=== PATIENT | female | born 1975 | race Asian ===

== ENCOUNTER 2017-07-01 14:52 | Emergency (ER) | payer BC ==
[2017-07-01 15:24] VITALS: BP 130/70; PULSE 98; RESP 30; TEMP 98; O2SAT 100
--- NOTE | 2017-07-01 15:51 | RADRPT ---
EXAM DATE/TIME: 07/01/2017 15:42 [place] COMPARISON: No previous studies available for comparison. INDICATIONS : Patient presents with extreme shortness of breath , no prior history . MEDICAL HISTORY : None. SURGICAL HISTORY : None. ENCOUNTER: Initial ACUITY: 1 day PAIN SCORE: 3/10 LOCATION: Bilateral upper chest FINDINGS: PA and lateral views of the chest demonstrate the lungs to be symmetrically aerated without evidence of mass, infiltrate or effusion. The cardiomediastinal contours are unremarkable. Osseous structure s are intact. CONCLUSION: 1. No acute cardiopulmonary disease. Blue Chaudhari MD on July 01, 2017 at 15:48 Board Certified Radiologist. This report was verified electronically.
[2017-07-01 16:35] LABS: AUTOMATED NEUTROPHIL # 2.9 TH/MM3 (1.8-7.7); BASOPHIL # 0.1 TH/MM3 (0-0.2); BASOPHIL % 1.1 % (0.0-2.0); EOSINOPHIL # 0.6 TH/MM3 (0-0.4); EOSINOPHIL % 8.9 % (0.0-4.0); HEMATOCRIT 41.1 % (35.0-46.0); HEMOGLOBIN 14.4 GM/DL (11.6-15.3); LYMPHOCYTE # 2.5 TH/MM3 (1.0-4.8); MEAN CELL VOLUME 89.6 FL (80.0-100.0); MEAN CORPUSCULAR HEMOGLOBIN 31.3 PG (27.0-34.0); MEAN PLATELET VOLUME 8.4 FL (7.0-11.0); MONO % 6.4 % (0.0-8.0); MONOCYTE # 0.4 TH/MM3 (0-0.9); NEUT % 44.6 % (16.0-70.0); PLATELET COUNT 215 TH/MM3 (150-450); RED BLOOD COUNT 4.59 MIL/MM3 (4.00-5.30); RED CELL DISTRIBUTION WIDTH 12.1 % (11.6-17.2); WHITE BLOOD COUNT 6.5 TH/MM3 (4.0-11.0)
[2017-07-01 16:46] LABS: PROTHROMBIN TIME - PATIENT 10.4 SEC (9.8-11.6)
[2017-07-01 16:54] LABS: BICARBONATE 24.6 MEQ/L (21.0-32.0); BLOOD UREA NITROGEN 8 MG/DL (7-18); CALCIUM 9.1 MG/DL (8.5-10.1); CHLORIDE 109 MEQ/L (98-107); CREATININE 0.72 MG/DL (0.50-1.00); GLOMERULAR FILTRATION RATE 88 ML/MIN (>89); GLUCOSE,RANDOM 92 MG/DL (74-106); SODIUM (NA) 142 MEQ/L (136-145)
--- NOTE | 2017-07-01 16:54 | PD ---
HPI Chief Complaint: Respiratory Symptoms Time Seen by Provider: 16:33 Travel History International Travel<30 days: Yes Contact w/Intl Traveler<30days: Yes Name of Country Traveled to: [facility]; [facility] Traveled to known affect area: Yes History of Present Illness HPI 42yo F with PMH allergies presents to the ED with c/o sudden onset sob and chest tightness since 12pm today. Said it feels like someone is squeezing her. Pt also with nasal congestion for 2 weeks and has cough. She has recent travel history to [place] 3 weeks ago. Denies any fever, n/v, abdominal pain, focal weakness or numbness. PFSH Social History Tobacco Use: No Allergies-Medications (Allergen,Severity, Reaction): Uncoded Allergies: ENVIRONMENTAL (Allergy, Intermediate, 07/01/17) Reported Meds & Prescriptions Reported Meds & Active Scripts Active Claritin (Loratadine) 10 Mg Cap 10 Mg PO DAILY 30 Days Ventolin Hfa 18 GM Inh (Albuterol Sulfate) 90 Mcg/Act Aer 2 Puff INH Q6H PRN Deltasone (Prednisone) 20 Mg Tab 20 Mg PO BID 5 Days Review of Systems Except as stated in HPI: all other systems reviewed are Neg Physical Exam Narrative GENERAL: 42yo F in mild distress. SKIN: Focused skin assessment warm/dry. HEAD: Atraumatic. Normocephalic. EYES: Pupils equal and round. No scleral icterus. No injection or drainage. ENT: +Increase edema in nasal turbinates bilaterally. NECK: Trachea midline. No JVD. CARDIOVASCULAR: Regular rate and rhythm. No murmur appreciated. RESPIRATORY: No accessory muscle use. Clear to auscultation. Breath sounds equal bilaterally. GASTROINTESTINAL: Abdomen soft, non-tender, nondistended. MUSCULOSKELETAL: No obvious deformities. No clubbing. No cyanosis. No edema. No calf tenderness. NEUROLOGICAL: Awake and alert. No obvious cranial nerve deficits. Motor grossly within normal limits. Normal speech. PSYCHIATRIC: Appropriate mood and affect; insight and judgment normal. Data Data Last Documented VS Vital Signs Date Time Temp Pulse Resp B/P (MAP) Pulse Ox O2 Delivery O2 Flow Rate FiO2 07/01/17 16:30 96 Room Air 07/01/17 15:24 98.0 98 30 130/70 (90) Orders Orders Complete Blood Count With Diff (07/01/17 15:27) Basic Metabolic Panel (Bmp) (07/01/17 15:27) Coag Profile (07/01/17 15:27) Chest, Pa & Lat (07/01/17 ) D-Dimer (07/01/17 16:43) Electrocardiogram (07/01/17 ) Dexamethasone Inj (Decadron Inj) (07/01/17 17:00) Guaifen-Cod 200-20 Mg/10ml Liq (Robituss (07/01/17 17:00) Troponin I (07/01/17 16:01) Ed Discharge Order (07/01/17 18:11) Labs Laboratory Tests Test 07/01/17 16:01 07/01/17 16:43 White Blood Count 6.5 TH/MM3 Red Blood Count 4.59 MIL/MM3 Hemoglobin 14.4 GM/DL Hematocrit 41.1 % Mean Corpuscular Volume 89.6 FL Mean Corpuscular Hemoglobin 31.3 PG Mean Corpuscular Hemoglobin Concent 35.0 % Red Cell Distribution Width 12.1 % Platelet Count 215 TH/MM3 Mean Platelet Volume 8.4 FL Neutrophils (%) (Auto) 44.6 % Lymphocytes (%) (Auto) 39.0 % Monocytes (%) (Auto) 6.4 % Eosinophils (%) (Auto) 8.9 % Basophils (%) (Auto) 1.1 % Neutrophils # (Auto) 2.9 TH/MM3 Lymphocytes # (Auto) 2.5 TH/MM3 Monocytes # (Auto) 0.4 TH/MM3 Eosinophils # (Auto) 0.6 TH/MM3 Basophils # (Auto) 0.1 TH/MM3 CBC Comment DIFF FINAL Differential Comment Prothrombin Time 10.4 SEC Prothromb Time International Ratio 1.0 RATIO Activated Partial Thromboplast Time 30.9 SEC Blood Urea Nitrogen 8 MG/DL Creatinine 0.72 MG/DL Random Glucose 92 MG/DL Calcium Level 9.1 MG/DL Sodium Level 142 MEQ/L Potassium Level 3.6 MEQ/L Chloride Level 109 MEQ/L Carbon Dioxide Level 24.6 MEQ/L Anion Gap 8 MEQ/L Estimat Glomerular Filtration Rate 88 ML/MIN Troponin I LESS THAN 0.02 NG/ML D-Dimer Quantitative (PE/DVT) 0.19 MG/L FEU [facility] Medical Decision Making Medical Screen Exam Complete: Yes Emergency Medical Condition: Yes Interpretation(s) EKG: NSR 89bpm. LAD. No ST segment elevation or depression. Differential Diagnosis postnasal drip vs. ACS vs. pneumonia vs. URI vs. anxiety vs. PE Narrative Course 42yo F with sudden onset sob and chest tightness since 12pm today. Pt is saturating at 97% on RA and HR is in the 80s. However, she does have recent travel history and never had this sudden onset sob before. Will do D-dimer for low suspicion for PE. CXR negative. Pt states she gets really bad allergies every year and is requesting a shot of steroids which usually helps her. Labs were order at triage but added troponin and D-dimer. Will give dexamethasone and robitussin. Sign out to next team to follow up and reevaluate. Diagnosis Primary Impression: Cough Scripts Loratadine (Claritin) 10 Mg Cap 10 MG PO DAILY for Allergy Management for 30 Days, #30 CAP 0 Refills Prov: Stan Cadet MD 07/01/17 Albuterol 18 GM Inh (Ventolin Hfa 18 GM Inh) 90 Mcg/Act Aer 2 PUFF INH Q6H Y for SHORTNESS OF BREATH, #1 INHALER 0 Refills Prov: Stan Cadet MD 07/01/17 Prednisone (Deltasone) 20 Mg Tab 20 MG PO BID for 5 Days, #10 TAB 0 Refills Prov: Stan Cadet MD 07/01/17 Jaclyn Simmons DO Jul 01, 2017 16:54
[2017-07-01] MEDS ORDERED: guaiFENesin/CODEINE SYRUP 200 MG/20 MG/10 ML CUP PO ONE (17:00)
[2017-07-01] MEDS ORDERED: DEXAMETHASONE SOD PHOS 4 MG/ML VIAL IM ONE (17:00)
[2017-07-01 17:34] LABS: TROPONIN I LESS THAN 0.02 NG/ML (0.02-0.05)
[2017-07-01] MEDS ORDERED: VENTAER INH (18:11)
[2017-07-01] MEDS ORDERED: CLAR10CA3 PO (18:11)
[2017-07-01] MEDS ORDERED: PRED-503 PO (18:11)
--- NOTE | 2017-07-01 18:11 | PD ---
Data Data Last Documented VS Vital Signs Date Time Temp Pulse Resp B/P (MAP) Pulse Ox O2 Delivery O2 Flow Rate FiO2 07/01/17 16:30 96 Room Air 07/01/17 15:24 98.0 98 30 130/70 (90) Orders Orders Complete Blood Count With Diff (07/01/17 15:27) Basic Metabolic Panel (Bmp) (07/01/17 15:27) Coag Profile (07/01/17 15:27) Chest, Pa & Lat (07/01/17 ) D-Dimer (07/01/17 16:43) Electrocardiogram (07/01/17 ) Dexamethasone Inj (Decadron Inj) (07/01/17 17:00) Guaifen-Cod 200-20 Mg/10ml Liq (Robituss (07/01/17 17:00) Troponin I (07/01/17 16:01) Labs Laboratory Tests Test 07/01/17 16:01 07/01/17 16:43 White Blood Count 6.5 TH/MM3 Red Blood Count 4.59 MIL/MM3 Hemoglobin 14.4 GM/DL Hematocrit 41.1 % Mean Corpuscular Volume 89.6 FL Mean Corpuscular Hemoglobin 31.3 PG Mean Corpuscular Hemoglobin Concent 35.0 % Red Cell Distribution Width 12.1 % Platelet Count 215 TH/MM3 Mean Platelet Volume 8.4 FL Neutrophils (%) (Auto) 44.6 % Lymphocytes (%) (Auto) 39.0 % Monocytes (%) (Auto) 6.4 % Eosinophils (%) (Auto) 8.9 % Basophils (%) (Auto) 1.1 % Neutrophils # (Auto) 2.9 TH/MM3 Lymphocytes # (Auto) 2.5 TH/MM3 Monocytes # (Auto) 0.4 TH/MM3 Eosinophils # (Auto) 0.6 TH/MM3 Basophils # (Auto) 0.1 TH/MM3 CBC Comment DIFF FINAL Differential Comment Prothrombin Time 10.4 SEC Prothromb Time International Ratio 1.0 RATIO Activated Partial Thromboplast Time 30.9 SEC Blood Urea Nitrogen 8 MG/DL Creatinine 0.72 MG/DL Random Glucose 92 MG/DL Calcium Level 9.1 MG/DL Sodium Level 142 MEQ/L Potassium Level 3.6 MEQ/L Chloride Level 109 MEQ/L Carbon Dioxide Level 24.6 MEQ/L Anion Gap 8 MEQ/L Estimat Glomerular Filtration Rate 88 ML/MIN Troponin I LESS THAN 0.02 NG/ML D-Dimer Quantitative (PE/DVT) 0.19 MG/L FEU [facility] Supervised Visit with WESLY: Yes Narrative Course 39-year-old woman, severe sinus symptoms with congestion and rhinorrhea, taking plentiful [id number] medications including decongestants daily, presents with chest tightness congestions or shortness of breath associated with some hyperventilation symptoms including lightheadedness and tingling in the hands. Recent long travel. Seen by Dr. Simmons, evaluated for pneumonia bronchitis reactive airway disease and PE, EKG and troponin also performed and unremarkable. Workup is overall unrevealing. I think this is probably postnasal drip causing some bronchitis and bronchospasm. Minimal if any wheezing on exam. She looks well. She does use steroids or bronchodilators in the past. Would recommend short course of steroids and bronchial dilators, continue antihistamines, take a holiday from the decongestants, outpatient follow-up. Diagnosis Primary Impression: Shortness of breath Patient Instructions: General Instructions Additional Instruction: Take steroids as prescribed. Use albuterol inhaler every 4-6 hours as needed for chest tightness or trouble breathing. I recommend avoiding medications with decongestants in them including pseudoephedrine, phenylephrine, Afrin or oxymetazoline, for a period of 3 weeks. Take antihistamines as prescribed. Follow-up with your primary doctor in the next 2-4 days per Med/Other Pt SpecificInfo: Prescription(s) given Scripts Loratadine (Claritin) 10 Mg Cap 10 MG PO DAILY for Allergy Management for 30 Days, #30 CAP 0 Refills Prov: Stan Cadet MD 07/01/17 Albuterol 18 GM Inh (Ventolin Hfa 18 GM Inh) 90 Mcg/Act Aer 2 PUFF INH Q6H Y for SHORTNESS OF BREATH, #1 INHALER 0 Refills Prov: Stan Cadet MD 07/01/17 Prednisone (Deltasone) 20 Mg Tab 20 MG PO BID for 5 Days, #10 TAB 0 Refills Prov: Stan Cadet MD 07/01/17 Disposition: 01 DISCHARGE HOME Condition: Stable Stan Cadet MD Jul 01, 2017 18:11
--- NOTE | 2017-07-02 15:52 | EKG ---
Date Performed: 07/01/2017 Time Performed: 17:29:57 PTAGE: 42 years EKG: Sinus rhythm WITH SINUS ARRHYTHMIA NONSPECIFIC T-WAVE ABNORMALITY BORDERLINE ECG NO PREVIOUS TRACING DOCTOR: Missael Valderrama Interpretating Date/Time 07/02/2017 15:50:58
== END 2017-07-01 18:46 | disposition home or self-care (01) ==
LOC: NED 14:52 → NEPD 18:46
DX: R06.02 Shortness of breath (principal); R09.81 Nasal congestion; J34.89 Other specified disorders of nose and nasal sinuses; R07.89 Other chest pain; R05 Cough; I49.8 Other specified cardiac arrhythmias; R94.31 Abnormal electrocardiogram [ECG] [EKG]; Z79.51 Long term (current) use of inhaled steroids; Z79.899 Other long term (current) drug therapy
CPT/HCPCS: 71046; 80048; 84484; 85025; 85379; 85610; 85730; 93005; 96372; 99285; J1100